=== PATIENT | male | born 1965 | race Caucasian/White ===

== ENCOUNTER 2019-12-05 04:00 | Emergency (ER) | payer OTHER ==
[~2019-12-05] VITALS: Ht 172.7 cm; Wt 90.0 kg
[~2019-12-05 04:00] MED LIST: BACTRIM DS1 TAB PO; LAC PO; LEVAQUIN750 MG PO
[2019-12-05 04:39] LABS: BASOPHIL % 0.6 % (0-2); PLATELET COUNT 201 x10^3mcL (130-400)
[2019-12-05 04:47] LABS: CALCIUM 9.1 mg/dL (8.5-10.1); CARBON DIOXIDE 24.8 mmol/L (21-32); CHLORIDE SERUM 105 mmol/L (98-107); GFR1 > 60 mL/min; GLUCOSE SERUM 117 mg/dL (74-106); SODIUM SERUM 139 mmol/L (136-145)
[2019-12-05 04:51] LABS: ALBUMIN 3.6 g/dL (3.4-5.0); ALKALINE PHOSPHATASE 99 U/L (46-116); ALT/SGPT 36 U/L (16-63); AST/SGOT 18 U/L (15-37); BILIRUBIN TOTAL 0.31 mg/dL (0.20-1.00); LIPASE 154 IU/L (73-393); TOTAL PROTEIN, SERUM 7.5 g/dL (6.4-8.2)
[2019-12-05 06:34] VITALS: BP 100/62
== END 2019-12-05 06:35 | disposition home or self-care (01) ==
LOC: ED 04:00
PROVIDERS: Emergency Medicine
DX: R10.816 Epigastric abdominal tenderness (principal)
CPT/HCPCS: 36415; J1885; Q0162